=== PATIENT | female | born 1935 | race Caucasian/White ===

== ENCOUNTER 2017-05-09 17:38 | Inpatient (IN) | payer MEDICARE, MEDICAID ==
[~2017-05-09] VITALS: Ht 167.6 cm; Wt 99.8 kg
--- NOTE | ~2017-05-09 | PR ---
[place], [place] PROGRESS NOTE NAME: KARYN MARKS UNIT #: [id number] ROOM: 317 DOCTOR: SULEMA GAUTHIER,MY BIRTHDATE: [birth year] DOS: 05/15/2017 CHIEF COMPLAINT: "Very good." SUMMARY OF THE VISIT: The patient was interviewed in her room sitting in a Noy chair. Denies seeing or hearing things; however, according to staff, the patient has been talking to unseen persons and grabbing into the air. The patient told staff that she is here to see her grandmother and wants to give her some candy. The patient appears less agitated when interact with staff since yesterday. The patient slept approximately 1 hour, with multiple awakenings, yelling out those times. MENTAL STATUS: Alert and awake. Good eye contact today as well. Affect is still flat. The patient appears more conversational this morning with increasingly appropriate responses. There is evidence of visual and auditory hallucination, especially when the patient was in the room herself, not during the interview. No overt emile or hypomania noted. PLAN: We will increase Namenda to 10 mg b.i.d. We will also increase Vraylar to 4.5 mg at bedtime from 3.0 mg. Currently in isolation due to history of UTI. Plan is to engage the patient in individual and eventually will place her in a less restricted environment with ultimate plan is to be discharged when she is psychiatrically stable. MY SULEMA, DO ANYI ARRIAGA MD CM:BURKE [phone] LLOYD LEONE DO 05/19/17 0742 interface
--- NOTE | ~2017-05-09 | PR ---
[place], [place] PROGRESS NOTE NAME: KARYN MARKS UNIT #: [id number] ROOM: 317 DOCTOR: SULEMA GAUTHIER,MY BIRTHDATE: [birth year] DOS: 05/16/2017 CHIEF COMPLAINT: "I'm cold." SUMMARY OF THE VISIT: The patient was interviewed in her room. The patient repeatedly complains of "too cold" and asked for another blanket. She was shaken underneath of her blanket. The patient said she would want breakfast now and would like to get up in her chair. Her eyes closed during most of the interview. Has not been participating in group activities since admission due to isolation protocol. MENTAL STATUS: Alert and awake, but appears lethargic. Poor eye contact. Affect is flat and blunt. No overt emile or hypomania. No overt evidence of paranoia or delusions. PLAN: We will continue Namenda 10 mg b.i.d. We will also increase Vraylar 6 mg at bedtime. Currently in isolation. Plan is to engage the patient in less restricted environment with the ultimate plan is to be discharged when the patient is psychiatrically stable. MY SULEMA, DO ANYI ARRIAGA MD CM:PNTRANS [phone] LLOYD LEONE DO 05/16/17 1320 interface
--- NOTE | ~2017-05-09 | PR ---
[place], [place] PROGRESS NOTE NAME: KARYN MARKS UNIT #: [id number] ROOM: 317 DOCTOR: SULEMA GAUTHIER,MY BIRTHDATE: [birth year] DOS: 05/13/2017 CHIEF COMPLAINT: "I am here because of my stomach issues." SUMMARY OF THE VISIT: The patient was interviewed in her room. Said she is here because of her stomach pain. Said she is hungry and wants some breakfast. According to staff, the patient became agitated easily since admitted, called them names and refused medications at times. MENTAL STATUS: More verbal. Affect is still flat and blunted. Poor eye contact. Mood is still irritable. No overt delusions or auditory hallucinations noted. No emile noted. PLAN: We will continue Namenda 5 mg b.i.d. to augment the effectiveness of the Exelon. Today we will increase Vraylar from 1.5 mg to 3 mg at bedtime to help with psychotic symptoms and also augment the effectiveness of the anti-depression. We will continue to engage the patient in individual and fu milieu activity. Plan is to return to the patient back to [facility] when the patient is psychiatrically stable. MY DO SULEMA ANYI ARRIAGA MD CM:PNTRANS [phone] LLOYD LEONE DO 05/13/17 1255 interface
--- NOTE | ~2017-05-09 | WRIGHTHP ---
[place], [place] PATIENT HISTORY AND PHYSICAL EXAM NAME: KARYN MARKS UNIT #: [id number] ROOM: 317 DOCTOR: MEL HOWARD,BREEZY BIRTHDATE: [birth year] DOS: 05/09/2017 INITIAL EVALUATION CHIEF COMPLAINT: "I am cold." HISTORY OF PRESENT ILLNESS: The patient is an 81-year-old lady with multiple medical problems and has history of depression with psychotic features, is admitted with exacerbation of her depression. She has multiple medical problems, which are contributing to her depression. She is very irritable, getting agitated easily, did not want to talk much, answers are very short and brief and stating that she is hurting all over and is not her fault. States that she did sleep a little bit better last night, appetite is okay. Denies any auditory or visual hallucinations at present, though she has history of psychosis as per records. PAST PSYCHIATRIC HISTORY: History of depression with psychotic features. PAST MEDICAL HISTORY: She has arthritis, coronary artery disease, congestive heart failure, chronic kidney disease, acid reflux, hypertension, diabetes. FAMILY HISTORY: Nothing significant. SUBSTANCE ABUSE: Denies any use of alcohol or drugs. MENTAL STATUS EXAMINATION: The patient is sitting in Noy chair, is very irritable, agitated easily, did not want to talk much, is oriented to person, place and approximate to time. Very poor eye contact. Very short answers, yes or no. Mood is irritable, blunted affect. No emile or hypomania. No delusions or paranoia at present. DIAGNOSIS: Major depression with psychotic features. PLAN: The patient is already taking Fanapt and Remeron. We shall continue with that along with her medical medicines, continue her care and shall try and engage her in fu milieu as she is more stable. [place], [place] PATIENT HISTORY AND PHYSICAL EXAM NAME: KARYN MARKS UNIT #: [id number] ROOM: 317 DOCTOR: BREEZY LEAL MD BIRTHDATE: [birth year] BREEZY LEAL MD CM:HISPHYS:PATIENT HISTORY AND PHYSICAL EXAMINATION [id number] BREEZY LEAL MD 05/10/17 1312 interface
--- NOTE | ~2017-05-09 | PR ---
[place], [place] PROGRESS NOTE NAME: KARYN MARKS UNIT #: [id number] ROOM: 317 DOCTOR: ANYI ARRIAGA MD BIRTHDATE: [birth year] DOS: 05/12/2017 CHIEF COMPLAINT: The patient was nonverbal, but nodded her head. SUMMARY OF THE VISIT: The patient was interviewed or attempted to be interviewed as she sat in the dining area waiting for breakfast. She did open her eyes briefly and nod yes to me once, but for the most part was nonverbal. Nurses report she did not sleep well last night. She continues to exhibit confusion and depression as well as some psychotic symptoms. MENTAL STATUS: Limited due to her lack of participation, but she certainly seems rather flat and blunted. PLAN: I will go ahead and increase Namenda from 5 mg a day to 5 mg twice a day, augmenting the effectiveness of the Exelon patch. At this point, I will discontinue Fanapt as she came in on this medication and it seems ineffective. I will add Vraylar 1.5 mg at bedtime and plan to keep the dose low to combat the psychotic symptoms and augment the effectiveness of the antidepressant. We will attempt to engage in individual and fu milieu activity, returning back to [facility] or the least restrictive environment when psychiatrically stable. ANYI ARRIAGA MD CM:PNTRANS [phone] ANYI ARRIAGA MD 05/12/17 1003 interface
--- NOTE | ~2017-05-09 | PR ---
[place], [place] PROGRESS NOTE NAME: KARYN MARKS UNIT #: [id number] ROOM: 317 DOCTOR: SULEMA GAUTHIER,MY BIRTHDATE: [birth year] DOS: 05/14/2017 CHIEF COMPLAINT: "Good morning." SUMMARY OF THE VISIT: The patient was interviewed in her room, sitting in a Noy-chair. Said she finished all her breakfast, but could not remember much what she just had. She asked for another blanket because "I am cold." States she slept well last night, however, the patient only slept for approximately 2 hours per staff record. According to staff, patient became agitated easily, called them names, yelled at them, kicking ____ and attempts to scratch and pinch staff. She refused medications at times as well. MENTAL STATUS: Alert and awake. Good eye contact, improving as compared to yesterday. Affect is still flat. Mood, agitations and irritability during interactions with staff throughout the evening and medical office receptionist assistant. Her responses this morning were more appropriate and more engaging. No evidence of psychosis, delusions or auditory hallucination at the present. No overt emile or hypomania. PLAN: Increase Namenda at 10 mg in the morning and 5 mg p.m., plan is to increase Namenda to 10 mg b.i.d. by tomorrow if patient tolerates the medication well. Continue Vraylar 3 mg at bedtime. We will continue to engage the patient in individual and fu milieu activity, discharge when she is psychiatrically stable. MY LEONE, DO ANYI ARRIAGA MD CM:PNTRANS [phone] LLOYD LEONE DO 05/14/17 1208 interface
--- NOTE | ~2017-05-09 | DS ---
[place], [place] DISCHARGE SUMMARY NAME: KARYN MARKS UNIT #: [id number] ROOM: 317 DOCTOR: ANYI ARRIAAG MD BIRTHDATE: [birth year] DOS: 05/19/2017 CHIEF COMPLAINT: "I am cold." HISTORY OF PRESENT ILLNESS: This is an 81-year-old white female who is a resident of [facility]. She is admitted now with an exacerbation of her major depression with psychotic features. The patient has multiple medical problems which contribute to her overall level of depression. While at the long-term care facility, she has become increasingly more irritable and agitated and has been verbally and physically aggressive towards staff. Sleep and appetite have both been poor and she has been increasingly more out of control. Given her marked decompensation, it was felt that an inpatient hospitalization was warranted to re-stabilize on medication, to engage in individual and fu milieu activity, ultimately returning back to [facility]. PAST MEDICAL HISTORY: Remarkable for osteoarthritis, coronary artery disease, congestive heart failure, chronic kidney disease, GERD, hypertension and diabetes. SUMMARY OF HOSPITAL COURSE: The patient was admitted to the hospital where her Fanapt was discontinued in lieu of Vraylar. With this initial change person, the patient did have a significant exacerbation of her psychotic symptoms and complained of hearing increased auditory hallucinations as well as seeing things. As the dose of the Vraylar was gradually increased, however, these symptoms came under control. Remeron was used as an antidepressant that would rapidly improve sleep and appetite, which it did. The patient was found to be cognitively impaired, so both the Exelon patch and Namenda were started and both doses were rapidly titrated to their maximum dose. With the Exelon being stabilized at 13.3 mg daily and Namenda at 10 mg twice a day, the patient gradually improved over the course of her stay, noting improved sleep and appetite, improved mood. Her agitation and aggression dissipated completely and she became very pleasant and docile. The patient convincingly denied any medication side effects during the latter part of her stay, reporting that she felt good and was comfortable with her current medication regimen. MENTAL STATUS AT DISCHARGE: The patient was alert and oriented to person, place and very approximate to time. Mood had strongly trended towards euthymia. Affect was appropriate. Speech rate and pattern were normal. There was no emile or hypomania. No overt auditory or visual hallucinations. No delusions, no paranoia. Short term memory had mild gaps, otherwise she was fully intact. 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 DISPOSITION: The patient is to return to [facility]. All of her prescriptions have been e scribed to her institutional pharmacy. I will follow her upon her readmission to [facility]. [place], [place] DISCHARGE SUMMARY NAME: KARYN MARKS UNIT #: [id number] ROOM: [facility] DOCTOR: ANYI ARRIAAG MD BIRTHDATE: [birth year] ANYI ARRIAGA MD CM:DISCHARG 4 3 ANYI ARRIAGA MD 05/19/1744 interface
--- NOTE | ~2017-05-09 | PR ---
[place], [place] PROGRESS NOTE NAME: KARYN MARKS UNIT #: [id number] ROOM: 317 DOCTOR: MEL HOWARD,BREEZY BIRTHDATE: [birth year] DOS: CHIEF COMPLAINT: "I'm cold." SUBJECTIVE: The patient is seen today in her room, sitting in a Noy chair. She did not want to engage in conversation, though she stated that she is cold, also that she is not doing good. As per nurse's report, she has been irritable, agitated easily, and getting angry easily. She did sleep last night and had her breakfast this morning as well. MENTAL STATUS EXAM: The patient is alert, though did not want to engage in conversation; very poor eye contact. Her answers were very short, brief and then she closed her eyes and did not want a further conversation. PLAN: At present, she will continue her medicines, continue her care and shall monitor her progress and try engage her in fu milieu as she is more stable. BREEZY LEAL MD CM:PNTRANS [phone] BREEZY LEAL MD 05/18/1721 interface
--- NOTE | ~2017-05-09 | PROC NOTE ---
[place], [place] PROCEDURE NOTE NAME: KARYN MARKS UNIT #: [id number] ROOM: 317 DOCTOR: RYLAND RICHARDS BIRTHDATE: [birth year] DOS: 05/16/2017 MBSS REPORT PRIMARY PHYSICIAN: Dr. Mcguire RADIOLOGIST: Dr. Lorenzana ROOM NUMBER: 317. HISTORY OF PRESENT ILLNESS: The patient is an 81-year-old female admitted to [facility] on 05/09/2017 due to exacerbation of depression. Her PMH includes PD, reflux, CAD, CHF, CKD, HTN, DM and dementia. The patient also recently had esophageal obstruction/removal. The patient is currently receiving a pureed diet with nectar thickened liquids. She was placed on this diet at an outside facility per nursing and as her personal preference to consume pureed foods only. GENERAL COMMENTS: The patient remained awake and alert throughout the exam. She was not cooperative, expressing that she was in pain and that she did not want p.o. offerings. MBSS METHODS. This exam was reviewed in the lateral plane. View was obscured due to suboptimal patient positioning; however, pharynx was viewed during all trials. The patient trialled the following barium impregnated consistencies, thin liquids via straw x 1, teaspoon of pureed x 1 and of course solid with barium coating x 2. A 100% feeding assistance was provided due to patient's refusal to participate. Further trials were attempted, but the patient refused. ORAL PHASE: Adequate bolus acceptance with no anterior loss. Labial seal was adequate for straw draw. AP bolus transit was adequate. Prolonged mastication and premature loss noted with solids only. PHARYNGEAL PHASE: Initiation of the swallow response was timely. HLE was adequate in both anterior and superior planes. No aspiration or penetration observed with any consistency. Base of tongue to posterior pharyngeal wall contact was adequate with no pharyngeal residue appreciated. UES: Unremarkable. IMPRESSION: The patient presents with mild oral dysphagia classified by prolonged mastication and premature loss of solids. No aspiration or penetration was observed with any consistency. Recommend a soft diet with thin liquids. If patient is unable to maintain adequate nutrition due to refusal of advanced consistencies (previously consumed only pureed per preference), downgrade to pureed may be appropriate. The patient's aspiration risk factors include current mental status and diagnoses of PD and gastroesophageal reflux disease. Adherence to precautions below is recommended to reduce this risk. RECOMMENDATIONS: [place], [place] PROCEDURE NOTE NAME: KARYN MARKS UNIT #: [id number] ROOM: [facility] DOCTOR: RYLAND RICHARDS BIRTHDATE: [birth year] 1. Soft diet with thin liquids. 2. Supervision with p.o. feeding assistance p.r.n. 3. Aspiration precautions, fully upright, awake and alert for all p.o. small bites/sips, slow rate of feeding, oral care at least b.i.d. PLAN OF CARE: DIRECTOR OF RECRUITMENT service will followup to ensure tolerance to diet and reinforce aspiration precautions. The above was discussed with RN who expressed understanding. Please contact the DIRECTOR OF RECRUITMENT Department at [phone] with any questions/concerns. Ryland Driver CM:PROCNOTE:PROCEDURE NOTE [phone] RYLAND RICHARDS
--- NOTE | ~2017-05-09 | PR ---
[place], [place] PROGRESS NOTE NAME: KARYN MARKS UNIT #: [id number] ROOM: 317 DOCTOR: MEL HOWARD,BREEZY BIRTHDATE: [birth year] DOS: CHIEF COMPLAINT: I don't like this breakfast/" SUBJECTIVE: The patient is seen today, sitting in a Noy chair in dining area, having breakfast, but states she does not like this breakfast. She is still very unhappy, irritable, though she did engage a bit. As per nurses report, she slept an hour or two last night. First refused her medicines, but later took them. Denies any auditory or visual hallucinations. She is on multiple medicines, which are being monitored by the hospitalist. Also, that she had a fall last night. CT scan was done and no distinct acute intracranial process was identified. MENTAL STATUS EXAMINATION: Elderly lady, sitting in Noy chair, still getting irritable, agitated easily, did have short conversation, poor eye contact, mood irritable, blunted affect. No evidence of psychosis at present. No emile or hypomania. PLAN: The patient is still depressed and would need further stabilization. She is on multiple medicines and we shall try to use minimal psych meds, monitor her progress and try and engage her in fu milieu as she is more stable. BREEZY LEAL MD CM:PNERIC 9 [phone] BREEZY LEAL MD 05/11/17818 interface
--- NOTE | ~2017-05-09 | PR ---
[place], [place] PROGRESS NOTE NAME: KARYN MARKS UNIT #: [id number] ROOM: 317 DOCTOR: MEL HOWARD,BREEZY BIRTHDATE: [birth year] DOS: CHIEF COMPLAINT: "I'm feeling better." SUBJECTIVE: The patient is seen in her room, sitting in Noy chair, is in better mood this morning, stating she is feeling better today, did sleep better last night, ate her breakfast this morning. As per nurse's report, she did have some period of agitation, but later calmed down and she thanked me for seeing her this morning. MENTAL STATUS EXAMINATION: The patient is awake, alert this morning, oriented to person, place, not time, did engage in conversation, better eye contact today. Mood seems better, but still blunted affect. No emile or hypomania and no overt psychosis at this time. PLAN: Today, she is showing some improvement. Shall continue her medicines, continue her care and try and engage her in fu milieu as she is more stable. BREEZY LEAL MD CM:BURKE [phone] BREEZY LEAL MD 05/18/17 1323 interface
[2017-05-09] MEDS ORDERED: ACIDOPHILUS LA1 EACH PO (18:21)
[2017-05-09] MEDS ORDERED: Ventolin 02.5 MG/3 M INH (18:22)
[2017-05-09] MEDS ORDERED: ARANESP60 MCG/1 M SQ (18:23)
[2017-05-09] MEDS ORDERED: ASPIRIN81 M1 PO (18:23)
[2017-05-09] MEDS ORDERED: LIPITOR20 MG PO (18:24)
[2017-05-09] MEDS ORDERED: BUMETANIDE1 MG PO (18:24)
[2017-05-09] MEDS ORDERED: CARAFATE1 G1 PO (18:25)
[2017-05-09] MEDS ORDERED: CIPRO500 MG PO (18:25)
[2017-05-09] MEDS ORDERED: COMTAN200 MG PO (18:26)
[2017-05-09] MEDS ORDERED: COREG25 MG PO (18:26)
[2017-05-09] MEDS ORDERED: DULCOLAX10 M1 R (18:27)
[2017-05-09] MEDS ORDERED: EXELON13.3 MG/21 TD (18:27)
[2017-05-09] MEDS ORDERED: FANAPT4 MG PO (18:28)
[2017-05-09] MEDS ORDERED: OMEGA-3100 MG PO (18:30)
[2017-05-09] MEDS ORDERED: Hydralazine Hyd25 MG PO (18:30)
[2017-05-09] MEDS ORDERED: FEOSOL325 MG PO (18:30)
[2017-05-09] MEDS ORDERED: CLARITIN10 MG PO (18:32)
[2017-05-09] MEDS ORDERED: MAGOX 400400 MG PO (18:34)
[2017-05-09] MEDS ORDERED: MELATONIN3 MG PO (18:34)
[2017-05-09] MEDS ORDERED: MIRALAX17 GM PO (18:35)
[2017-05-09] MEDS ORDERED: GNC NIACIN 250250 MG PO (18:36)
[2017-05-09] MEDS ORDERED: NITROSTAT0.4 MG SL (18:38)
[2017-05-09] MEDS ORDERED: NOVOLOG10 ML SQ (18:41)
[2017-05-09] MEDS ORDERED: OMEPRAZOLE20 M2 PO (18:42)
[2017-05-09] MEDS ORDERED: PHENERGAN25 MG R (18:42)
[2017-05-09] MEDS ORDERED: PEPCID20 MG PO (18:42)
[2017-05-09] MEDS ORDERED: PLAVIX75 M1 PO (18:43)
[2017-05-09] MEDS ORDERED: POTASSIUM CHLO20 ME3 PO (18:43)
[2017-05-09] MEDS ORDERED: PREDNISOLONE ACE5 ML OD (18:44)
[2017-05-09] MEDS ORDERED: ULTRAM50 MG PO (18:45)
[2017-05-09] MEDS ORDERED: Sinemet Cr 25-11 TAB PO (18:45)
[2017-05-09] MEDS ORDERED: VITAMIN D31000 UNI1 PO (18:46)
[2017-05-09] MEDS ORDERED: Zofran4 MG PO (18:46)
[2017-05-09] MEDS ORDERED: XANAX0.25 MG PO (18:46)
[2017-05-09 21:50] LABS: BASO # 0.1 10*3/uL (0.0-0.1); BASO % 0.6 % (0.0-1.0); EOS # 0.2 10*3/uL (0.0-0.4); EOS % 1.6 % (1.0-4.0); HEMATOCRIT 36.4 % (37.0-47.0); HEMOGLOBIN 11.9 g/dl (12.0-16.0); LYMPH # 2.6 10*3/uL (1.3-4.4); LYMPH % 24.9 % (27.0-41.0); MEAN CELL VOLUME 82.4 fl (81.0-99.0); MEAN CORPUSCULAR HGB 26.9 pg (27.0-31.0); MEAN CORPUSCULAR HGB CONC 32.7 g/dl (33.0-37.0); MEAN PLATELET VOLUME 9.4 fl (9.6-12.3); MONO # 1.3 10*3/uL (0.1-1.0); NEUT # 6.4 10*3/uL (2.3-7.9); NEUT % 60.5 % (47.0-73.0); PLATELET COUNT AUTOMATED 284 10*3/uL (130-400); RED BLOOD COUNT 4.42 10*6/uL (4.10-5.10); RED CELL DISTRI WIDTH 15.8 % (0-14.5); WHITE BLOOD COUNT 10.6 10*3/uL (4.8-10.8)
[2017-05-09 21:52] VITALS: BP 131/61
[2017-05-09 22:07] LABS: ALBUMIN 3.6 gm/dl (3.1-4.5); CREATININE 2.53 mg/dL (0.55-1.02); POTASSIUM 3.9 mmol/L (3.5-5.1); TOTAL PROTEIN 7.1 gm/dL (6.4-8.2)
[2017-05-09 22:15] LABS: THYROID STIM HORMONE (HS) 0.755 uIU/ml (0.358-4.75)
[2017-05-09 22:24] LABS: VITAMIN D, 25-HYDROXY 23.1 ng/mL (30-100)
[2017-05-09 22:34] VITALS: BP 131/61
[2017-05-10 05:28] LABS: CHOLESTEROL 198 mg/dL (<200); HDL CHOLESTEROL 43 mg/dl (40-60); LDL CHOLESTEROL 114 mg/dL (9-159); TRIGLYCERIDES 203 mg/dl (<150); VLDL CHOLESTEROL 41 mg/dL (6-40)
[2017-05-10 08:15] VITALS: BP 131/59
[2017-05-10 12:30] LABS: BILIRUBIN NEGATIVE (NEGATIVE); BLOOD NEGATIVE (NEGATIVE); CLARITY CLEAR (CLEAR); COLOR YELLOW (YELLOW); GLUCOSE NEGATIVE (NEGATIVE); KETONE NEGATIVE (NEGATIVE); LEUKO ESTERASE TRACE (NEGATIVE); NITRITE NEGATIVE (NEGATIVE); PH 5.5 (5.0-9.0); UROBILINOGEN 0.2 E.U./dl (0.2-1.0)
[2017-05-10 12:39] LABS: BACTERIA 1+; EPITHELIAL CELLS 31-40; RBC 0-2 rbc/hpf (0-2)
[2017-05-11 06:50] LABS: CREATININE 2.67 mg/dL (0.55-1.02); POTASSIUM 3.6 mmol/L (3.5-5.1)
[2017-05-11 08:17] VITALS: BP 125/58
[2017-05-11 20:01] VITALS: BP 129/54
[2017-05-12 07:55] VITALS: BP 123/53
[2017-05-12 20:00] VITALS: BP 138/62
[2017-05-13 07:59] VITALS: BP 117/56
[2017-05-13 11:23] LABS: BASO # 0.1 10*3/uL (0.0-0.1); BASO % 0.6 % (0.0-1.0); EOS # 0.3 10*3/uL (0.0-0.4); EOS % 3.7 % (1.0-4.0); HEMATOCRIT 31.2 % (37.0-47.0); HEMOGLOBIN 10.2 g/dl (12.0-16.0); LYMPH % 24.2 % (27.0-41.0); MEAN CELL VOLUME 81.9 fl (81.0-99.0); MEAN CORPUSCULAR HGB 26.8 pg (27.0-31.0); MEAN CORPUSCULAR HGB CONC 32.7 g/dl (33.0-37.0); MEAN PLATELET VOLUME 8.8 fl (9.6-12.3); MONO # 0.8 10*3/uL (0.1-1.0); MONO % 9.9 % (3.0-9.0); NEUT % 61.4 % (47.0-73.0); PLATELET COUNT AUTOMATED 264 10*3/uL (130-400); RED BLOOD COUNT 3.81 10*6/uL (4.10-5.10); WHITE BLOOD COUNT 8.1 10*3/uL (4.8-10.8)
[2017-05-13 11:44] LABS: ALBUMIN 2.9 gm/dl (3.1-4.5); CREATININE 1.65 mg/dL (0.55-1.02); POTASSIUM 3.4 mmol/L (3.5-5.1); TOTAL PROTEIN 5.8 gm/dL (6.4-8.2)
[2017-05-13 20:00] VITALS: BP 126/63
[2017-05-14 07:32] VITALS: BP 135/65
[2017-05-14 20:04] VITALS: BP 137/62
[2017-05-15 05:18] LABS: ALBUMIN 3.6 gm/dl (3.1-4.5); CREATININE 1.4 mg/dL (0.55-1.02); POTASSIUM 4.1 mmol/L (3.5-5.1); TOTAL PROTEIN 6.9 gm/dL (6.4-8.2)
[2017-05-15 06:24] LABS: BASO # 0.1 10*3/uL (0.0-0.1); BASO % 0.7 % (0.0-1.0); EOS # 0.4 10*3/uL (0.0-0.4); EOS % 4.7 % (1.0-4.0); HEMOGLOBIN 11.7 g/dl (12.0-16.0); LYMPH # 2.5 10*3/uL (1.3-4.4); LYMPH % 28.2 % (27.0-41.0); MEAN CELL VOLUME 83.9 fl (81.0-99.0); MEAN CORPUSCULAR HGB 26.5 pg (27.0-31.0); MEAN CORPUSCULAR HGB CONC 31.6 g/dl (33.0-37.0); MEAN PLATELET VOLUME 9.1 fl (9.6-12.3); MONO # 0.9 10*3/uL (0.1-1.0); MONO % 9.8 % (3.0-9.0); NEUT # 4.9 10*3/uL (2.3-7.9); NEUT % 56.1 % (47.0-73.0); PLATELET COUNT AUTOMATED 326 10*3/uL (130-400); RED BLOOD COUNT 4.41 10*6/uL (4.10-5.10); RED CELL DISTRI WIDTH 16.3 % (0-14.5); WHITE BLOOD COUNT 8.7 10*3/uL (4.8-10.8)
[2017-05-15 08:36] VITALS: BP 107/66
[2017-05-15 08:44] LABS: LIPASE 155 U/L (73-393)
[2017-05-15 21:42] VITALS: BP 132/57
[2017-05-16 08:09] VITALS: BP 132/80
[2017-05-16 20:52] VITALS: BP 144/62
[2017-05-17 08:31] VITALS: BP 149/81
[2017-05-17 20:00] VITALS: BP 137/64
[2017-05-18 07:51] VITALS: BP 141/59
[2017-05-18 20:00] VITALS: BP 132/73
[2017-05-19 07:43] VITALS: BP 136/62
[2017-05-19] MEDS ORDERED: MEMANTINE HCL10 MG PO (08:47)
[2017-05-19] MEDS ORDERED: VRAYLAR6 MG PO (08:47)
[2017-05-19] MEDS ORDERED: EXELON13.3 MG/21 T (08:47)
[2017-05-19] MEDS ORDERED: MIRTAZAPINE15 M2 PO (08:47)
== END 2017-05-19 17:00 | disposition other institution (70) | DRG 56 ==
LOC: 3N 17:38
PROVIDERS: Family Medicine; Internal Medicine; Nurse Practitioner Adult Health; Registered Nurse; ADMIT Psychiatry & Neurology Psychiatry
PROC: BD1BYZZ Fluoroscopy of Mouth/Oropharynx using Other Contrast (ICD-10-PCS; principal; 2017-05-16)
DX: G30.9 Alzheimer's disease, unspecified (principal); N17.0 Acute kidney failure with tubular necrosis; E11.22 Type 2 diabetes mellitus with diabetic chronic kidney disease; K22.0 Achalasia of cardia; N18.4 Chronic kidney disease, stage 4 (severe); F33.3 Major depressive disorder, recurrent, severe with psychotic symptoms; E11.65 Type 2 diabetes mellitus with hyperglycemia; G20 Parkinson's disease; E66.01 Morbid (severe) obesity due to excess calories; I13.0 Hypertensive heart and chronic kidney disease with heart failure and stage 1 through stage 4 chronic kidney disease, or unspecified chronic kidney disease; F23 Brief psychotic disorder; I50.9 Heart failure, unspecified; M35.3 Polymyalgia rheumatica; F02.80 Dementia in other diseases classified elsewhere, unspecified severity, without behavioral disturbance, psychotic disturbance, mood disturbance, and anxiety; I25.10 Atherosclerotic heart disease of native coronary artery without angina pectoris; K21.9 Gastro-esophageal reflux disease without esophagitis; M19.90 Unspecified osteoarthritis, unspecified site; E78.5 Hyperlipidemia, unspecified; D63.8 Anemia in other chronic diseases classified elsewhere; F41.9 Anxiety disorder, unspecified; H18.50 Unspecified hereditary corneal dystrophies; N76.0 Acute vaginitis; R00.0 Tachycardia, unspecified; Z82.49 Family history of ischemic heart disease and other diseases of the circulatory system; Z80.9 Family history of malignant neoplasm, unspecified; Z79.4 Long term (current) use of insulin; Z88.5 Allergy status to narcotic agent; Z88.8 Allergy status to other drugs, medicaments and biological substances; Z91.041 Radiographic dye allergy status; Z95.1 Presence of aortocoronary bypass graft; Z79.82 Long term (current) use of aspirin; Z79.899 Other long term (current) drug therapy; Z68.35 Body mass index [BMI] 35.0-35.9, adult; Z87.440 Personal history of urinary (tract) infections